=== PATIENT | female | born 1975 | race American Indian/Alaskan Native ===

== ENCOUNTER 2016-12-23 17:20 | Emergency (ER) | payer SELFPAY ==
[2016-12-23 18:41] LABS: Hematocrit 38.4 % (30.3-42.9); Mean Corpuscular HGB Conc 31 % (30-34); Mean Corpuscular Hemoglobin 23 pg (28-32); Mean Corpuscular Volume 74 fl (79-97); Platelet Count 253 K/mm3 (140-440); Red Blood Count 5.21 M/mm3 (3.65-5.03); Red Cell Distribution Width 19.2 % (13.2-15.2); White Blood Count 11.5 K/mm3 (4.5-11.0)
[2016-12-23 19:08] LABS: BUN/Creatinine Ratio 12.3; Calcium 9.6 mg/dL (8.4-10.2); Potassium 3.6 mmol/L (3.6-5.0)
[2016-12-23 19:22] LABS: Basophils % (Manual) 0 % (0.0-1.8); Blastocytes % (Manual) 0 %
[2016-12-23 19:24] LABS: Anisocytosis 1+; Diff Status Complete; Microcytosis Few; Poikilocytosis 1+
[2016-12-23 20:59] LABS: Bacteria,Urine 3+ /HPF (Negative); Bilirubin,Urine NEG (Negative); Blood,Urine NEG (Negative); Ketones,Urine NEG (Negative); Leukocyte Esterase,Urine LG (Negative); Mucus,Urine 3+ /HPF; Nitrite,Urine POS (Negative); Urobilinogen,Urine < 2.0 mg/dL (<2.0)
--- NOTE | 2016-12-23 21:22 | Cat Scan Report ---
FINAL REPORT PROCEDURE: CT HEAD/BRAIN WO CON TECHNIQUE: Computerized tomography of the head was performed without contrast material. HISTORY: left arm numbness/blurred vision COMPARISON: No prior studies are available for comparison. FINDINGS: Brain: Brain density appears normal. No evidence of intracranial hemorrhage. No parenchymal hemorrhage, mass lesions or mass effect are seen. No abnormal extraxial fluid collects or masses are seen. Ventricles: Ventricles are normal size and are midline. Bone Windows: No evidence of skull fracture. Paranasal sinuses: Clear Mastoid air cells: Clear IMPRESSION: Negative exam. If the patient's clinical symptoms persist or worsen consider follow-up CT scan or MRI of the brain for further evaluation.
[2016-12-23] MEDS ORDERED: ZOFRAN ODT ONE (22:20)
[2016-12-23] MEDS ORDERED: ZOFRAN ODT PO ONE ×2 (22:23→23:47)
[2016-12-23 23:39] VITALS: BP 102/65
== END 2016-12-23 23:35 | disposition left against medical advice (07) ==
LOC: ED 17:20
DX: R11.2 Nausea with vomiting, unspecified (principal); R51 Headache; Z53.21 Procedure and treatment not carried out due to patient leaving prior to being seen by health care provider
CPT/HCPCS: 36415; 70450; 80048; 81001; 81025; 85007; 85025; Q0162

== ENCOUNTER 2016-12-25 05:44 | Emergency (ER) | payer SELFPAY ==
[2016-12-25 07:40] LABS: Basophils % (Auto) 0.3 % (0.0-1.8); Eosinophils % (Auto) 1.2 % (0.0-4.3); Hematocrit 39.4 % (30.3-42.9); Hemoglobin 12.5 gm/dl (10.1-14.3); Mean Corpuscular HGB Conc 32 % (30-34); Mean Corpuscular Volume 73 fl (79-97); Platelet Count 239 K/mm3 (140-440); Red Blood Count 5.36 M/mm3 (3.65-5.03); Red Cell Distribution Width 19.3 % (13.2-15.2); White Blood Count 9.4 K/mm3 (4.5-11.0)
[2016-12-25 07:46] LABS: Alanine Aminotransferase 10 units/L (7-56); Albumin 4.3 g/dL (3.9-5); Alkaline Phosphatase 104 units/L (35-129); Anion Gap 19 mmol/L; Blood Urea Nitrogen 14 mg/dL (7-17); Calcium 9.7 mg/dL (8.4-10.2); Carbon Dioxide 27 mmol/L (22-30); Chloride 101.2 mmol/L (98-107); Glucose 101 mg/dL (65-100); Lipase 38 units/L (13-60); Potassium 3.7 mmol/L (3.6-5.0); Sodium 143 mmol/L (137-145); Total Protein 8.8 g/dL (6.3-8.2)
[2016-12-25 07:47] LABS: Mean Corpuscular Hemoglobin 23 pg (28-32)
[2016-12-25] MEDS ORDERED: ZOFRAN ODT PO ONE (08:04)
[2016-12-25 08:44] LABS: Bacteria,Urine 3+ /HPF (Negative); Bilirubin,Urine NEG (Negative); Blood,Urine NEG (Negative); Ketones,Urine NEG (Negative); Leukocyte Esterase,Urine MOD (Negative); Mucus,Urine 3+ /HPF; Nitrite,Urine POS (Negative)
[2016-12-25] MEDS ORDERED: NACL 0.9% 1000 ML 1,000 ML IV ONE (09:53)
[2016-12-25] MEDS ORDERED: REGLAN IV ONE (09:53)
[2016-12-25] MEDS ORDERED: TORADOL IV ONE (09:53)
[2016-12-25] MEDS ORDERED: ROCEPHIN/NS 1 GM/50 ML 1 GM/50 ML BAG IV ONE (09:54)
--- NOTE | 2016-12-25 10:01 | Emergency Department Report ---
ED N/V/D HPI - General Chief complaint: Nausea/Vomiting/Diarrhea Stated complaint: SINUS IRRITAION/VOMITING Time Seen by Provider: 12/25/16 09:47 Source: patient, EMS Mode of arrival: Stretcher Limitations: No Limitations - History of Present Illness Initial comments: Patient is a 41-year-old female presents to the emergency department with complaint of headache nausea vomiting diarrhea and urinary frequency with dysuria. Patient's symptoms started on Sunday and they've worsened since that time. She describes the headache as frontal in the sinus region feels like pressure. She states the nausea and vomiting has made it difficult to tolerate by mouth. The urinary frequency and dysuria started around the same time. Her abdominal pain is crampy in nature. It is mild. It does not radiate. MD complaint: nausea, vomiting, abdominal pain Description of Vomiting: watery Associated Abdominal Pain: Yes (suprapubic) Radiation: none Severity: mild Quality: cramping, aching Improves with: none Worsens with: none - Related Data Previous Rx's Medication Instructions Recorded Last Taken Type Ibuprofen [Motrin 600 MG tab] 600 mg PO Q8H PRN #30 tablet 12/25/16 Unknown Rx Levofloxacin [Levaquin TAB] 500 mg PO QDAY #10 tablet 12/25/16 Unknown Rx Morphine [Morphine TAB] 15 mg PO Q6HR PRN #10 tablet 12/25/16 Unknown Rx Promethazine [Phenergan TAB] 25 mg PO Q6HR PRN #30 tab 12/25/16 Unknown Rx Allergies Allergy/AdvReac Type Severity Reaction Status Date / Time Penicillins AdvReac Unknown Verified 12/23/16 18:17 ED Review of Systems ROS: Stated complaint: SINUS IRRITAION/VOMITING Other details as noted in HPI Constitutional: denies: chills, fever Eyes: denies: eye pain, eye discharge, vision change ENT: denies: ear pain, throat pain Respiratory: denies: cough, shortness of breath, wheezing Cardiovascular: denies: chest pain, palpitations, dyspnea on exertion Endocrine: no symptoms reported Gastrointestinal: denies: abdominal pain, nausea, diarrhea Genitourinary: urgency, dysuria, frequency. denies: discharge Musculoskeletal: denies: back pain, joint swelling, arthralgia Skin: denies: rash, lesions Neurological: headache. denies: weakness, numbness, paresthesias, confusion Psychiatric: denies: anxiety, depression Hematological/Lymphatic: denies: easy bleeding, easy bruising ED Past Medical Hx - Past Medical History Previous Medical History?: Yes Hx Hypertension: Yes Hx Psychiatric Treatment: Yes (ANXIETY) Additional medical history: INFANTILE SINUSES - Surgical History Past Surgical History?: Yes Additional Surgical History: C SECTION - Social History Smoking Status: Current Every Day Smoker Substance Use Type: Alcohol - Medications Home Medications: Home Medications Medication Instructions Recorded Confirmed Last Taken Type Ibuprofen [Motrin 600 MG tab] 600 mg PO Q8H PRN #30 tablet 12/25/16 Unknown Rx Levofloxacin [Levaquin TAB] 500 mg PO QDAY #10 tablet 12/25/16 Unknown Rx Morphine [Morphine TAB] 15 mg PO Q6HR PRN #10 tablet 12/25/16 Unknown Rx Promethazine [Phenergan TAB] 25 mg PO Q6HR PRN #30 tab 12/25/16 Unknown Rx ED Physical Exam - General Limitations: No Limitations General appearance: alert, in no apparent distress - Head Head exam: Present: atraumatic, normocephalic - Eye Eye exam: Present: normal appearance - ENT ENT exam: Present: mucous membranes moist - Neck Neck exam: Present: normal inspection - Respiratory Respiratory exam: Present: normal lung sounds bilaterally. Absent: respiratory distress - Cardiovascular Cardiovascular Exam: Present: regular rate, normal rhythm. Absent: systolic murmur, diastolic murmur, rubs, gallop - GI/Abdominal GI/Abdominal exam: Present: soft, normal bowel sounds, other (mild suprapubic tenderness no rebound or guarding). Absent: tenderness, guarding, rebound - Extremities Exam Extremities exam: Present: normal inspection - Back Exam Back exam: Present: normal inspection - Neurological Exam Neurological exam: Present: alert, oriented X3 - Psychiatric Psychiatric exam: Present: normal affect, normal mood - Skin Skin exam: Present: warm, dry, intact, normal color. Absent: rash ED Course Vital Signs 12/25/16 12/25/16 12/25/16 06:41 09:46 09:47 Temperature 98.6 F Pulse Rate 84 76 Respiratory 11 L Rate Blood Pressure 149/113 193/123 O2 Sat by Pulse 100 100 100 Oximetry 12/25/16 12/25/16 09:48 09:58 Temperature Pulse Rate 77 Respiratory 13 18 Rate Blood Pressure 193/123 O2 Sat by Pulse 100 Oximetry ED Medical Decision Making - Lab Data Result diagrams: 12/25/16 07:03 12/25/16 07:03 Laboratory Results - last 24 hr 12/25/16 12/25/16 12/25/16 07:03 07:03 07:03 WBC 9.4 RBC 5.36 H Hgb 12.5 Hct 39.4 MCV 73 L MCH 23 L MCHC 32 RDW 19.3 H Plt Count 239 Lymph % (Auto) 31.1 [place] % (Auto) 7.5 H Eos % (Auto) 1.2 Baso % (Auto) 0.3 Lymph # 2.9 [place] # 0.7 Eos # 0.1 Baso # 0.0 Seg Neutrophils % 59.9 Seg Neutrophils # 5.6 Sodium 143 Potassium 3.7 Chloride 101.2 Carbon Dioxide 27 Anion Gap 19 BUN 14 Creatinine 0.8 Estimated GFR > 60 BUN/Creatinine Ratio 17.50 Glucose 101 H Calcium 9.7 Total Bilirubin 0.40 AST 16 ALT 10 Alkaline Phosphatase 104 Total Protein 8.8 H Albumin 4.3 Albumin/Globulin Ratio 1.0 Lipase 38 HCG, Qual Negative Urine Color Urine Turbidity Urine pH Ur Specific [place] Urine Protein Urine Glucose (UA) Urine Ketones Urine Blood Urine Nitrite Urine Bilirubin Urine Urobilinogen Ur Leukocyte Esterase Urine WBC (Auto) Urine RBC (Auto) U Epithel Cells (Auto) Urine Bacteria (Auto) Urine Mucus 12/25/16 08:18 WBC RBC Hgb Hct MCV MCH MCHC RDW Plt Count Lymph % (Auto) [place] % (Auto) Eos % (Auto) Baso % (Auto) Lymph # [place] # Eos # Baso # Seg Neutrophils % Seg Neutrophils # Sodium Potassium Chloride Carbon Dioxide Anion Gap BUN Creatinine Estimated GFR BUN/Creatinine Ratio Glucose Calcium Total Bilirubin AST ALT Alkaline Phosphatase Total Protein Albumin Albumin/Globulin Ratio Lipase HCG, Qual Urine Color Yellow Urine Turbidity Clear Urine pH 6.0 Ur Specific [place] 1.028 Urine Protein 30 mg/dl Urine Glucose (UA) Neg Urine Ketones Neg Urine Blood Neg Urine Nitrite Pos Urine Bilirubin Neg Urine Urobilinogen 4.0 Ur Leukocyte Esterase Mod Urine WBC (Auto) 27.0 H Urine RBC (Auto) 4.0 U Epithel Cells (Auto) 5.0 Urine Bacteria (Auto) 3+ Urine Mucus 3+ - Medical Decision Making Patient is a 41-year-old female here with nausea vomiting headache and some neck discomfort. She has a positive UA. My suspicion is that she has pyelonephritis. Plan to treat with IV antibiotics IV fluids and Reglan and Toradol here in the emergency department. Will reassess. Patient with continued pain but is improved. Plan to have her follow-up with her primary care doctor. We'll discharge home on oral Levaquin and Phenergan and pain medications. Portions of this chart were dictated with dictation software. There may be dictation errors contained within this note. Critical Care Time: No Critical care attestation.: If time is entered above; I have spent that time in minutes in the direct care of this critically ill patient, excluding procedure time. ED Disposition Clinical Impression: Pyelonephritis, Nausea and vomiting Disposition: TO HOME OR SELFCARE Is pt being admited?: No Does the pt Need Aspirin: No Condition: Stable Instructions: Acute Pyelonephritis (ED) Prescriptions: Ibuprofen [Motrin 600 MG tab] 600 mg PO Q8H PRN #30 tablet PRN Reason: Pain Levofloxacin [Levaquin TAB] 500 mg PO QDAY #10 tablet Morphine [Morphine TAB] 15 mg PO Q6HR PRN #10 tablet PRN Reason: Pain Promethazine [Phenergan TAB] 25 mg PO Q6HR PRN #30 tab PRN Reason: Nausea Referrals: PRIMARY CARE, [Primary Care Provider] - 3-5 Days Time of Disposition: 13:17
[2016-12-25] MEDS ORDERED: ZOFRAN ONE (12:39)
[2016-12-25] MEDS ORDERED: MORPHINE ONE (12:40)
[2016-12-25 14:03] VITALS: BP 142/99
== END 2016-12-25 14:03 | disposition home or self-care (01) ==
LOC: ED 05:44
DX: N12 Tubulo-interstitial nephritis, not specified as acute or chronic (principal); I10 Essential (primary) hypertension; F41.9 Anxiety disorder, unspecified; F17.210 Nicotine dependence, cigarettes, uncomplicated; Z88.0 Allergy status to penicillin
CPT/HCPCS: 36415; 80048; 80053; 81001; 83690; 84703; 85025; 87086; 96365; 96366; 96375; 99284; J0696; J1885; J2270; J2405; J2765; J7030; Q0162